=== PATIENT | male | born 1960 | race African-American/Black ===

== ENCOUNTER 2019-05-03 10:45 | Observation (INO) ==
[2019-05-03] MEDS ORDERED: NITROGLYCERIN SL 0.4 MG TABLET SL PRN (11:09)
[2019-05-03] MEDS ORDERED: ENOXAPARIN 100 MG/ML SYRINGE SUBCUT STA (11:09)
[2019-05-03] MEDS ORDERED: ASPIRIN 325 MG TABLET PO STA (11:09)
[2019-05-03] MEDS ORDERED: ENOXAPARIN 80 MG/0.8 ML SYRINGE SUBCUT ONE (11:20)
[2019-05-03 11:29] LABS: Basophils % 0.5 % (0.0-0.8); Eosinophils # 0.1 10*3/uL (0.0-0.87); Eosinophils % 2.8 % (0.00-10.9); Hematocrit 42.7 VOL% (42.0-52.0); Hemoglobin 14.9 GM/DL (14.0-18.0); Immature Granulocytes % 0.2 %; Immature Granulocytes Absolute 0.01 #; Lymphocytes # 1.2 10*3/uL (1.4-4.0); Lymphocytes % 27.8 % (21.2-54.2); Mean Corpuscular HGB Conc 34.9 GM/DL (32-36); Mean Corpuscular Volume 94.1 FL (87-102); Mean Platelet Volume 11.2 FL (9.6-12.0); Monocytes % 8.3 % (1.7-12.7); Neutrophils % 60.4 % (38.7-73.9); Platelet Count 191 T/CUMM (130-400); Red Blood Count 4.54 MC/CUMM (3.8-5.5); Red Cell Distribution Width 12.9 % (9.3-17.3); White Blood Count 4.4 T/CUMM (4-12)
[2019-05-03 11:54] LABS: Albumin 3.3 G/DL (3.4-5.0); Bilirubin,Total 0.5 MG/DL (0.2-1.0); Calcium 8.8 MG/DL (8.5-10.1); Osmolality,Calculated 285.5 MOS/KG (273-304); Total Protein 7.2 G/DL (6.4-8.3)
[2019-05-03] MEDS ORDERED: ACETAMINOPHEN 325 MG TABLET PO PRN (14:03)
[2019-05-03] MEDS ORDERED: DEXTROSE 50% 25 GM/50 ML VIAL IV PRN (14:08)
[2019-05-03] MEDS ORDERED: GLUCAGON 1 MG VIAL IM PRN (14:08)
[2019-05-03] MEDS ORDERED: ENOXAPARIN 40 MG/0.4 ML SYRINGE SUBCUT SCH (14:30)
[2019-05-03] MEDS ORDERED: LABETALOL 20 MG/4 ML SYRINGE IV ONE (14:54)
[2019-05-03] MEDS ORDERED: LABETALOL 20 MG/4 ML SYRINGE IV STA (15:01)
[2019-05-03] MEDS ORDERED: MAGNESIUM SULF RIDER 2 GM in PREMIX 1 EACH IV ONE (15:49)
[2019-05-03] MEDS: INSULIN REGULAR 100 UNIT/ML SUBCUT SCH ×2 (17:24→20:53)
[2019-05-03] MEDS: carvediloL 6.25 MG TABLET PO SCH ×2 (17:27→21:15)
[2019-05-03] MEDS: NICOTINE 21 MG/24 HR PATCH TRANSDERM SCH (17:28)
[2019-05-04 04:57] LABS: Basophils % 0.5 % (0.0-0.8); Eosinophils # 0.2 10*3/uL (0.0-0.87); Eosinophils % 2.8 % (0.00-10.9); Hematocrit 40.9 VOL% (42.0-52.0); Hemoglobin 14.2 GM/DL (14.0-18.0); Immature Granulocytes % 0.3 %; Immature Granulocytes Absolute 0.02 #; Lymphocytes # 1.9 10*3/uL (1.4-4.0); Mean Corpuscular HGB Conc 34.7 GM/DL (32-36); Mean Corpuscular Volume 95.1 FL (87-102); Mean Platelet Volume 11.6 FL (9.6-12.0); Monocytes % 8.1 % (1.7-12.7); Neutrophils % 56.3 % (38.7-73.9); Platelet Count 188 T/CUMM (130-400); Red Cell Distribution Width 12.8 % (9.3-17.3)
[2019-05-04 05:35] LABS: Calcium 8.6 MG/DL (8.5-10.1); Osmolality,Calculated 292.1 MOS/KG (273-304); Risk Ratio 4.84; Thyroid Stimulating Hormone 0.356 uIU/ml (0.358-3.74); VLDL CHOLESTEROL 12.4 MG/DL
[2019-05-04] MEDS ORDERED: PANTOPRAZOLE 40 MG TABLET PO SCH (09:00)
[2019-05-04] MEDS ORDERED: amLODIPine 10 MG TABLET PO SCH (09:00)
[2019-05-04] MEDS ORDERED: hydroCHLOROthiazide 12.5 MG CAPSULE PO SCH (09:00)
[2019-05-04] MEDS ORDERED: ASPIRIN EC 81 MG TABLET PO SCH (09:00)
[2019-05-04] MEDS ORDERED: carvediloL 12.5 MG TABLET PO SCH (09:00)
[2019-05-04] MEDS: INSULIN REGULAR 100 UNIT/ML SUBCUT SCH ×2 (09:13→12:24)
[2019-05-04] MEDS ORDERED: MAGNESIUM SULF RIDER 2 GM in PREMIX 1 EACH IV ONE (10:46)
[2019-05-04] MEDS: NICOTINE 21 MG/24 HR PATCH TRANSDERM SCH (12:23)
[2019-05-04 12:24] VITALS: BP 154/86
[2019-05-04] MEDS ORDERED: LOSARTAN 50 MG TABLET PO SCH (15:30)
== END 2019-05-04 15:47 | disposition home or self-care (01) ==
LOC: N.ED 10:45 → N.EDINP 10:45 → N.2W 16:12
PROVIDERS: ADMIT Hospitalist; ATTEND Hospitalist